=== PATIENT | female | born 1985 | race Caucasian/White ===

== ENCOUNTER 2021-07-31 06:43 | Outpatient (CLI) | payer BC ==
[~2021-07-31] VITALS: Ht 160 cm; Wt 88.9 kg
[2021-07-31] MEDS ORDERED: BUPR150T9 PO (09:59)
== END 2021-07-31 12:28 | disposition home or self-care (01) ==
LOC: PREOP 06:43
PROVIDERS: ATTEND Surgery
DX: Z01.818 Encounter for other preprocedural examination (principal)

== ENCOUNTER 2021-08-11 07:40 | Day surgery (SDC) | payer BC ==
[~2021-08-11] VITALS: Ht 160 cm; Wt 88.9 kg
[~2021-08-11 07:40] MED LIST: BUPR150T9 PO
[2021-08-11 07:45] VITALS: BP 133/86
[2021-08-11] MEDS ORDERED: PROPOFOL INJECTION 50 ML IV ONE (07:46)
[2021-08-11] MEDS ORDERED: MIDAZOLAM 2 MG/2 ML (VERSED) VIAL ONE (07:46)
[2021-08-11] MEDS ORDERED: LACTATED RINGERS 1,000 ML IV STA (07:48)
--- NOTE | 2021-08-11 08:20 | Progress Note-Pre Operative ---
Pre-Operative Progress Note H&P Reviewed The H&P was reviewed, patient examined and no changes noted. Time Seen by Provider: 08:16 Date H&P Reviewed: August 11, 2021 Time H&P Reviewed: 08:16 Pre-Operative Diagnosis: Family hx of colon CA VIC VASQUEZ DO August 11, 2021 08:20
[2021-08-11 08:45] VITALS: BP 107/70
--- NOTE | 2021-08-11 08:48 | Progress Note-Post Operative ---
Post-Operative Progess Note Surgeon (s)/Store Detective (s) Surgeon VIC VASQUEZ DO Store Detective: none Pre-Operative Diagnosis Family hx of colon CA Post-Operative Diagnosis Diverticula Int hemorrhoids Procedure & Operative Findings Date of Procedure 08/11/21 Procedure Performed/Findings Colonoscopy with cold biopsy PROCEDURE NOTE: After informed consent was obtained, the patient was brought to the endoscopy suite, placed in bed in left lateral decubitus position. She was administered IV sedation by the ENVIRONMENTAL ENGINEERING TECHNICIAN who then monitored her vitals the entire time, heart rate, blood pressure and pulse ox and the scope was inserted, pushed all the way to about 140 cm and pushed into the cecum, took a picture of appendiceal orifice and noted the ileo-cecal valve. Pt also had a diverticula in the cecum and took a picture of it as we. Then slowly withdrew the scope insufflating to look circumferentially at the pope starting in the cecum, up the ascending colon to the hepatic flexure, then down the transverse colon to the splenic flexure and into the descending colon. The descending colon looked slightly different and elected to do a cold biopsy. Continued down into the sigmoid and then into the rectal vault and retroflexed the scope. Took picture of the internal hemorrhoids. The patient tolerated the procedure. She was recovered in endoscopy suite. Recommended for repeat colonoscopy in 10 years. Anesthesia Type IV sedation by ENVIRONMENTAL ENGINEERING TECHNICIAN Estimated Blood Loss Estimated blood loss (mL): scant Specimens/Packing Specimens Removed desc colon bx VIC VASQUEZ DO August 11, 2021 08:48
--- NOTE | 2021-08-11 08:49 | Endoscopy Discharge Instruct ---
Endo Procedure/Findings Findings 1.: Diverticulosis 2.: Internal Hemorrhoids Discharge Instructions - Activity: You might feel a little sleepy until tomorrow. This is due to the medicine you received to relax you. Until tomorrow, you should: NOT drive a car, operate machinery or power tools. NOT drink any alcoholic beverages. NOT make any important decisions or sign importortant papers. Do not return to work until tomorrow, unless otherwise instructed. Resume previous activities tomorrow. Diet: Start by taking liquids. If you tolerate liquids, advance to solid food. 1.: Colonscopy in 10 years Notify Physician - If you experience excessive bleeding, unusual abdominal pain, fever, or chest pain, contact your doctor immediately. VIC VASQUEZ DO August 11, 2021 08:49
[2021-08-11 08:50] VITALS: BP 103/65
[2021-08-11 08:53] VITALS: BP 103/65
[2021-08-11 09:15] VITALS: BP 118/80
--- NOTE | 2021-08-11 13:09 | Anesthesia-General Post-Op ---
MAC Patient Condition Mental Status/LOC: Same as Preop Cardiovascular: Satisfactory Nausea/Vomiting: Absent Respiratory: Satisfactory Pain: Controlled Complications: Absent Post Op Complications Complications None Follow Up Care/Instructions Patient Instructions None needed. Anesthesiology Discharge Order Discharge Order Patient is doing well, no complaints, stable vital signs, no apparent adverse anesthesia problems. No complications reported per nursing. BETHANY BARKER CRNA August 11, 2021 13:09
== END 2021-08-11 09:22 | disposition home or self-care (01) ==
LOC: ENDO 07:40
PROVIDERS: ATTEND Surgery
DX: Z12.11 Encounter for screening for malignant neoplasm of colon (principal); K57.30 Diverticulosis of large intestine without perforation or abscess without bleeding; K64.8 Other hemorrhoids; F17.290 Nicotine dependence, other tobacco product, uncomplicated; Z80.0 Family history of malignant neoplasm of digestive organs; Z28.310 Unvaccinated for COVID-19; Z28.9 Immunization not carried out for unspecified reason
CPT/HCPCS: 84703